=== PATIENT | female | born 1945 | race Caucasian/White ===

== ENCOUNTER 2023-06-13 05:55 | Day surgery (SDC) | payer MEDICARE ==
[2023-06-04 08:52] VITALS: BP 167/81
[~2023-06-13] VITALS: Ht 167.6 cm; Wt 56.2 kg
[~2023-06-13 05:55] MED LIST: ACYCLOVIR200 MG PO; FISH OIL 1,0001 EAC6 PO; HYALURONIC ACID60 MG PO; HYDROCHLOROTHIA25 MG PO; LACTATED RINGER'S 1,000 ML IV SCH; VIT C-ROSE HIP500 MG PO
[2023-06-13 06:10] VITALS: BP 156/84
[2023-06-13] MEDS ORDERED: HEParin SOD (PORCINE) 5,000 UNIT/0.5 ML SYR SUB-Q SCH (07:00)
[2023-06-13] MEDS ORDERED: IBLOOD GLUCOSE TEST STRIP 1 EA TEST VI PRN ×2 (07:00→08:45)
[2023-06-13] MEDS ORDERED: CEFAZOLIN SODIUM 2 GM/20 ML SYR IV SCH (07:00)
[2023-06-13] MEDS ORDERED: LIDOCAINE HCL 1% 5 ML SDV INJ ONE (07:00)
[2023-06-13] MEDS ORDERED: KETOROLAC TROMETHAMINE 30 MG/ML VIAL ONE (07:20)
[2023-06-13] MEDS ORDERED: propofoL 200 MG/20 ML VIAL ONE (07:20)
[2023-06-13] MEDS ORDERED: dexmedeTOMIDine HCl 200 MCG/2 ML VIAL ONE (07:20)
[2023-06-13] MEDS ORDERED: LIDOCAINE HCL 1% 30 ML SDV ONE (07:20)
[2023-06-13] MEDS ORDERED: DEXAMETHASONE SOD PHOS 4 MG/ML VIAL ONE (07:20)
[2023-06-13] MEDS ORDERED: ondansetron HCL 4 MG/2 ML VIAL ONE (07:20)
[2023-06-13] MEDS ORDERED: ACETAMINOPHEN 1,000 MG/100 ML VIAL ONE (07:20)
[2023-06-13] MEDS ORDERED: KETAMINE in NS 50 MG/5 ML SYR ONE (07:21)
[2023-06-13] MEDS ORDERED: MIDAZOLAM HCL 2 MG/2 ML VIAL ONE (07:21)
--- NOTE | 2023-06-13 07:23 | NUR ---
UP TO BR. VIDYA AP HAS BEEN IN TO TALK TO PT.
[2023-06-13] MEDS ORDERED: FAMOTIDINE 20 MG/ 2 ML VIAL ONE (07:25)
--- NOTE | 2023-06-13 07:33 | NUR ---
ATTEMPTED TO VISIT DURING SPIRITUAL CARE ROUNDS. PT LEAVING FOR PROCEDURE. PROVIDED PRAYER.
--- NOTE | 2023-06-13 08:42 | NUR ---
06/13/23 0842 Lisa Horn 4016-PATIENT ARRIVED TO PACU ON 8L MASK RR EVEN. PATIENT NONAROUSABLE RR EVEN PLACED ON 6L MASK 96%. PATIENT LIGHTLY SNORING. SINUS RHYTHM HR 60'S. IVF INFUSING. DRESSING TO RIGHT BREAST CDI.
[2023-06-13] MEDS ORDERED: ondansetron HCL 4 MG/2 ML VIAL IV PRN (08:45)
[2023-06-13] MEDS ORDERED: NALOXONE HCL 0.4 MG SYR IV PRN ×2 (08:45→09:00)
[2023-06-13] MEDS ORDERED: fentaNYL citrate 50 MCG/ML SDV IV PRN (08:45)
[2023-06-13] MEDS ORDERED: IBUPROFEN600 MG PO (08:55)
[2023-06-13] MEDS ORDERED: OXYCODON-ACETA1 EAC2 PO (08:56)
[2023-06-13] MEDS ORDERED: ACETAMINOPHEN500 MG PO (08:56)
[2023-06-13] MEDS ORDERED: ACETAMINOPHEN 500 MG TAB PO PRN (09:00)
[2023-06-13] MEDS ORDERED: IBUPROFEN 600 MG TAB PO PRN (09:00)
[2023-06-13] MEDS ORDERED: LACTATED RINGER'S 1,000 ML IV SCH (09:00)
[2023-06-13] MEDS ORDERED: OXYCODONE/APAP 7.5/325 TAB PO PRN (09:00)
[2023-06-13 09:30] VITALS: BP 150/86
--- NOTE | 2023-06-13 09:34 | NUR ---
CALL LIGHT WITH IN REACH.
--- NOTE | 2023-06-13 10:15 | NUR ---
ATE JELLO AND CRACKERS PAIN 4/10 GIVEN PAIN PILL.
[2023-06-13 10:45] VITALS: BP 138/76
--- NOTE | 2023-06-13 11:32 | NUR ---
1115 DR DERAS IN TO TALK WITH PT.
--- NOTE | 2023-06-13 11:33 | NUR ---
UP TO BR AND VOIDS 300ML BHARAT URINE.
--- NOTE | 2023-06-13 11:36 | NUR ---
GETTING DRESSED. RATES APIN 2/. RX EFFECTIVE.
--- NOTE | 2023-06-15 09:47 | OR ---
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 PROCEDURE: Image guided right upper outer quadrant partial mastectomy with oncoplastic closure (ROSIE greaser helper localization). ANESTHESIA: General LMA, Juju Jacinto, STRIPER SPRAY GUN, and local 5 mL of 0.25% Marcaine with epinephrine. 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 The lesion is nonpalpable. She was noted on April 19, 2023 mammogram to have a group of microcalcifications in the upper outer aspect on the right side at the 11 o'clock position. A diagnostic mammogram was performed on May 05, confirmed BI-RADS category 4 suspicious lesion for which biopsy was recommended and performed. Her previous mammogram was in December of 2021. Biopsy was performed by stereotactic mammographic technique on May 15 and a clip was placed at the offending site. The final pathology confirmed low-grade ductal carcinoma in situ without comedo necrosis. She has been found to have no palpable lesion on clinical exam. Her breasts are relatively small overall. She has no family history of breast cancer that she is aware of. She is now to undergo right partial mastectomy by image guidance anticipating postoperative radiation therapy. The risk of bleeding, infection, cosmetic deformity, need for additional surgery should invasive cancer ultimately be identified as well as additional surgery if margins on resection are positive and so forth were all reviewed and well understood by the patient. Understanding that she wished to proceed. FINDINGS: The ROSIE greaser helper localization was undertaken well prior to today's operative intervention. The device was highly functional. Wide resection of breast tissue was undertaken and the ROSIE greaser helper implement as well as a localizing clip well identified by the radiologist on specimen radiograph. As the inferior aspect of the excision site had a somewhat Electronically Signed By: LENKA DERAS MD 06/15/23 0947 PATIENT NAME: ELBA BELTRAN OPERATIVE REPORT DATE OF : 49 REPORT #: [id number] PHYSICIAN: LENKA DERAS MD PCP: WANDY INIGUEZ PAC REPORT IS CONFIDENTIAL AND NOT TO BE RELEASED WITHOUT AUTHORIZATION [facility] [address] [place], [place] [address] Signed fibrotic texture, additional resection was undertaken extending towards the nipple-areolar complex. Closure of the wound did employ oncoplastic techniques including partial mobility of pedicles laterally and medially and resection of redundant skin so as to optimize cosmesis. DESCRIPTION OF PROCEDURE: The patient was brought to the operating room, given a general LMA type anesthetic, preoperative antibiotic Ancef was given, sequential compression device stockings were used. In the preop area, the ROSIE greaser helper reflector was confirmed to be functional. The right breast and chest wall was prepared with Betadine based solution and draped sterilely. Interrogation of the right breast with the ROSIE greaser helper probe showed a strong uptake in the upper outer aspect of the right breast. Based on that localization, a curvilinear incision was made in the outer aspect of the breast. Dissection was carried through the dermis sharply and ultimately with electrocautery. The ROSIE greaser helper affirm the position of the reflector device and wide resection was undertaken medially, laterally, superiorly and inferiorly. The segment was excised and confirmed by Radiology to include the ROSIE greaser helper implement and the localizing clips. As there was fibrotic change in the inferior aspect of the excised specimen, additional resection was undertaken in that area to provide additionally secured margin. Hemostasis was assured with electrocautery. Given the small breast size and relatively generous excision size, oncoplastic closure was advisable. Irrigation was undertaken. Once hemostasis assured, the medial and inferior breast pedicle was mobilized laterally and the lateral portion mobilized and brought medially. The parenchymal layers were reapproximated with interrupted 2-0 Vicryl. This did result in some excessive skin, which was additionally excised and passed as the additional excised skin for pathology as well. The wound was then closed in further layers with 2-0 Vicryl and a running subcuticular 3-0 Vicryl for the skin. Cosmesis was considered good. Steri-Strips were applied as was an Acticoat dressing. She tolerated procedure well. Blood loss was less than 20 mL in aggregate. Sponge, needle, and instrument counts were reported as correct x3. Additionally, 5 mL of 0.25% Marcaine with epinephrine injected locally for postoperative analgesic benefit. MD GUERLINE Marroquin/OLEL /[id number] Electronically Signed By: LENKA DERAS MD 06/15/23 0947 PATIENT NAME: ELBA BELTRAN OPERATIVE REPORT DATE OF : 49 REPORT #: [id number] PHYSICIAN: LENKA DERAS MD PCP: WANDY INIGUEZ PAC REPORT IS CONFIDENTIAL AND NOT TO BE RELEASED WITHOUT AUTHORIZATION [address] [place], [place] [address] Signed cc: OCTAVIA Cadena Copies: ~ Electronically Signed By: LNEKA DERAS MD 06/15/23 0947 PATIENT NAME: ELBA BELTRAN OPERATIVE REPORT DATE OF : 49 REPORT #: [id number] PHYSICIAN: LENKA DERAS MD PCP: WANDY INIGUEZ PAC REPORT IS CONFIDENTIAL AND NOT TO BE RELEASED WITHOUT AUTHORIZATION
--- NOTE | 2023-06-18 15:31 | PATH ---
[facility] [address] [place] [address] Signed SPECIMEN(S): A RIGHT UPPER OUTER BREAST SPECIMEN(S): B INFERIOR MARGIN RIGHT BREAST TUMOR SPECIMEN(S): C RIGHT BREAST INFERIOR ADDITIONAL SKIN SPECIMEN SOURCE: A. RIGHT UPPER OUTER BREAST B. INFERIOR MARGIN RIGHT BREAST TUMOR C. RIGHT BREAST INFERIOR ADDITIONAL SKIN CLINICAL HISTORY: Right breast intraductal carcinoma in situ. FINAL PATHOLOGIC DIAGNOSIS: A. Breast, right upper outer quadrant, excision: - Ductal carcinoma in situ, see synoptic report B. Breast, right inferior margin, excision: - Benign breast tissue; negative for invasive or in situ carcinoma C. Skin, "additional inferior", excision: - Benign skin and breast tissue with no significant pathologic changes DCIS OF THE BREAST: Resection SPECIMEN Procedure: Excision (less than total mastectomy) Specimen Laterality: Right TUMOR Tumor Site: Upper outer quadrant Histologic Type: Ductal carcinoma in situ Size (Extent) of DCIS: Estimated size (extent) of DCIS is at least (Millimeters) - 7 mm Architectural Patterns: Cribriform Nuclear Grade: Grade I (low) Necrosis: Not identified Microcalcifications: Present in DCIS MARGINS Margin Status: All margins negative for DCIS Distance from DCIS to Closest Margin: 2 mm Closest Margin(s) to DCIS: Anterior REGIONAL LYMPH NODES Regional Lymph Node Status: Not applicable (no regional lymph nodes submitted or found) PATHOLOGIC STAGE CLASSIFICATION (pTNM, AJCC 8th Edition) PATIENT NAME: ELBA BELTRAN PATHOLOGY DATE OF : 49 REPORT #: [id number] PHYSICIAN: CYNTHIA PATHOLOGY PCP: WANDY INIGUEZ PAC REPORT IS CONFIDENTIAL AND NOT TO BE RELEASED WITHOUT AUTHORIZATION [facility] [address] [place], [place] [address] Signed Reporting of pT, pN, and (when applicable) pM categories is based on information available to the pathologist at the time the report is issued. As per the AJCC (Chapter 1, 8th Ed.) it is the managing physician's responsibility to establish the final pathologic stage based upon all pertinent information, including but potentially not limited to this pathology report. pT Category: pTis (DCIS) pN Category: pN not assigned (no nodes submitted or found) ADDITIONAL FINDINGS Additional Findings: Atypical lobular hyperplasia, fibroadenomatous changes, biopsy site changes Breast Biomarker Testing Performed on Previous Biopsy: Estrogen Receptor (ER) Status: Positive Percentage of Cells with Nuclear Positivity: 91-100% Progesterone Receptor (PgR) Status: Positive Percentage of Cells with Nuclear Positivity: 91-100% Testing Performed on COMMENT: As part of [facility] Quality Improvement Program, this case was reviewed by another member of our pathology staff. [facility] MICROSCOPIC EXAMINATION: Histologic sections of all submitted blocks are examined by light microscopy. These findings, together with the gross examination, support the pathologic diagnosis. GROSS DESCRIPTION: A. The specimen, labeled and designated "Mohsen Beltran, " and designated on the requisition "right upper outer breast," is received in formalin and consists of 29 gram oriented portion of yellow-clemens fibroadipose tissue that is 6.2 x 5.9 x 1.9 cm. A short suture is present and identifies the superior margin; a long suture identifies the lateral margin. The specimen is inked as follows: superior - blue; inferior - green; medial - red; lateral - orange; anterior - yellow; and posterior - black. A metallic bi architect detector is identified on the anterior surface. The specimen is serially sectioned from medial to lateral into 12 slices revealing approximately 60% of the specimen is a white-clemens dense rubbery fibrous tissue and 60% is a yellow-clemens greasy adipose tissue. No discrete mass PATIENT NAME: ERNESTO BELTRANJulissa WAGGONERE PATHOLOGY DATE OF : 49 REPORT #: [id number] PHYSICIAN: CYNTHIA EDUARDO PCP: WANDY INIGUEZ PAC REPORT IS CONFIDENTIAL AND NOT TO BE RELEASED WITHOUT AUTHORIZATION [facility] [address] [place], [place] [address] Signed lesions are grossly identified. No biopsy cavities are grossly identified. Cassette Summary: (A1-A2) slice one, medial soft tissue resection margin, perpendicular (A3-A4) slice two (A5-A7) slice three (A8-A10) slice four (A11-A13) slice five (A14-A16) slice six (A17-A19) slice seven* (A20-A22) slice eight (A23-A25) slice nine (A26-A27) slice 10 (A28-A29) slice 11 (A30) slice 12, lateral soft tissue resection margin, perpendicular *Clip identified at microtomy. Cold ischemia time: 11 minutes Approximate Formalin time: 25 hours. B. The specimen, labeled and designated "Mohsen Beltran, " and designated on the requisition "inferior margin right breast tumor," is received in formalin and consists of 12 g unoriented portion of yellow-clemens fibroadipose tissue that is 5.4 x 3.7 x 1.4 cm. A black suture is present along one aspect. This surface is inked green and the remainder of the specimen is inked black. The tissue is serially sectioned perpendicular to the long axis revealing approximately 70% of the specimen is a yellow-clemens greasy adipose tissue and 30% is a white rubbery fibrous tissue. No discrete mass lesions are grossly identified. The specimen is entirely submitted consecutively in cassettes B1-B15, with bisected cross-sections in B4-B5, B6-B7, B8-B9, B11, B12, B13. Cold ischemia time: 11 minutes Approximate Formalin time: 25 hours. C. The specimen, labeled and designated "Mohsen Beltran, " and designated on the requisition "inferior additional skin," is received in formalin and consists of two unoriented portions of skin that measure 4.4 x 1.6 x 0.9 cm and 2.1 x 1.5 x 0.8 cm. The skin surfaces are pale pink and wrinkled. The tissue fragments are arbitrarily inked and sectioned revealing no discrete mass lesions are grossly. The specimen is entirely submitted consecutively in cassettes C1-C5. Cold ischemia time: 11 minutes Approximate Formalin time: 25 hours. PATIENT NAME: ELBA BELTRAN PATHOLOGY DATE OF : 49 REPORT #: [id number] PHYSICIAN: CYNTHIA EDUARDO PCP: WANDY INIGUEZ PAC REPORT IS CONFIDENTIAL AND NOT TO BE RELEASED WITHOUT AUTHORIZATION [address] [address] Signed FB (under the direct supervision of a pathologist) The Gross Description was prepared using a voice recognition system. The report was reviewed for accuracy; however, sound-alike word errors, addition and/or deletions may occur. If there is any question about this report, please contact Client Services. ADDITIONAL NOTES: Immunohistochemical and/or in situ hybridization studies if performed in this case included appropriate positive controls that reacted as expected. This test was developed and its performance characteristics determined by [facility]. It has not been cleared or approved by the U.S. Food and Drug Administration. The FDA has determined that such clearance or approval is not necessary. This test is used for clinical purposes. It should not be regarded as investigational or for research. [facility] is certified under the Clinical Laboratory Improvement Amendments of 1988 (CLIA) as qualified to perform high complexity clinical laboratory testing. PERFORMING LABORATORY: Technical component was performed by [facility], [address] [place] [address] (CLIA# [id number]). Professional interpretation was performed by [facility] - [address] [id number] Diagnostician: Perry Suggs MD Pathologist Electronically Signed 06/18/2023 Copies: ~ PATIENT NAME: ELBA BELTRAN PATHOLOGY DATE OF : 49 REPORT #: [id number] PHYSICIAN: ESTEFANIBEETmobile JAYCE PCP: ADDLEMAN,WANDY K PAC REPORT IS CONFIDENTIAL AND NOT TO BE RELEASED WITHOUT AUTHORIZATION
== END 2023-06-13 11:45 | disposition home or self-care (01) ==
LOC: DS 05:55
PROVIDERS: ATTEND Surgery
PROC: 0HBT0ZZ Excision of Right Breast, Open Approach (ICD-10-PCS; principal; 2023-06-13 07:30)
DX: D05.11 Intraductal carcinoma in situ of right breast (principal); C44.91 Basal cell carcinoma of skin, unspecified; I10 Essential (primary) hypertension; Z79.899 Other long term (current) drug therapy; K21.9 Gastro-esophageal reflux disease without esophagitis
CPT/HCPCS: 00400; 76098; 88305; 88307; J0131; J0690; J1100; J1644; J1885; J2250; J2405; J2704; J3490; J7121